=== PATIENT | female | born 1995 | race Two or more races ===

== ENCOUNTER 2022-06-18 21:59 | Outpatient (CLI) | payer OTHER | END 2022-06-19 08:13 | disposition home or self-care (01) | LOC: OBS/DEL 21:59 | PROVIDERS: ATTEND Obstetrics & Gynecology | DX: O36.8130 Decreased fetal movements, third trimester, not applicable or unspecified (principal); Z3A.34 34 weeks gestation of pregnancy; Z91.040 Latex allergy status ==

== ENCOUNTER 2022-07-17 06:07 | Inpatient (IN) | payer OTHER ==
[~2022-07-17] VITALS: Ht 152.4 cm; Wt 74.4 kg
[2022-07-17] MEDS ORDERED: ASPIRIN81 MG PO (06:37)
[2022-07-17] MEDS ORDERED: PRENATAL TABLE1 EAC1 PO (06:37)
[2022-07-17] MEDS ORDERED: FOLIC ACID20 MG PO (06:38)
[2022-07-20] MEDS ORDERED: DOCUSATE SODIU100 MG PO (09:52)
[2022-07-20] MEDS ORDERED: SIMETHICONE125 M1 PO (09:52)
[2022-07-20] MEDS ORDERED: PRENATE ENHANC1 EACH PO (09:52)
== END 2022-07-20 13:34 | disposition home or self-care (01) | DRG 788 ==
LOC: LDR 06:07 → O/R 12:45 → OB/GYN 14:02
PROVIDERS: ADMIT Obstetrics & Gynecology; ATTEND Obstetrics & Gynecology
PROC: 4A1HXCZ Monitoring of Products of Conception, Cardiac Rate, External Approach (ICD-10-PCS; 2022-07-17)
PROC: 10D00Z1 Extraction of Products of Conception, Low, Open Approach (ICD-10-PCS; principal; 2022-07-17 07:00)
DX: O32.2XX1 Maternal care for transverse and oblique lie, fetus 1 (principal); O32.8XX1 Maternal care for other malpresentation of fetus, fetus 1; O99.824 Streptococcus B carrier state complicating childbirth; O30.043 Twin pregnancy, dichorionic/diamniotic, third trimester; Z3A.38 38 weeks gestation of pregnancy; Z37.2 Twins, both liveborn; Z20.822 Contact with and (suspected) exposure to COVID-19